=== PATIENT | female | born 1965 ===

== ENCOUNTER 2017-02-12 06:01 | Day surgery (SDC) | payer SELFPAY ==
[2017-02-04 12:08] VITALS: BMI 32.3
[2017-02-12] MEDS ORDERED: Lactated Ringer's 1,000 ML IV ONE (06:37)
[2017-02-12] MEDS ORDERED: Succinylcholine 200 mg/10 ml Inj IV ONE (07:16)
[2017-02-12] MEDS ORDERED: Propofol 10 mg/ml Inj (20 ML) ONE (07:16)
[2017-02-12] MEDS ORDERED: Midazolam 2 MG/2 ML VIAL ONE (07:16)
[2017-02-12] MEDS ORDERED: Rocuronium 10 mg/ml (5 ml) ONE (07:16)
[2017-02-12] MEDS ORDERED: Phenylephrine 10 mg/ml Inj ONE (07:17)
[2017-02-12] MEDS ORDERED: ePHEDrine 50 mg/ml Inj ONE (07:17)
--- NOTE | 2017-02-12 07:29 | CP.SDSHP ---
Same Day Surgery H & P - History Proposed Procedure: hysteroscopy and removal or IUD Pre-Op Diagnosis: missing IUD/pelvic pain/fibroid uterus - Previous Medical/Surgical History Previous Surgical History: none - Allergies Allergies: Allergies No Known Allergies Allergy (Unverified 12/10/14 07:50) - Current Medications Current Medications: none - Physical Exam General Appearance: NAD Vital Signs: Vital Signs 02/12/17 02/12/17 06:26 06:28 Temperature 98.7 F Pulse Rate 90 90 Respiratory 18 Rate Blood Pressure 139/83 O2 Sat by Pulse 97 Oximetry Mental Status: Alert & Oriented x3 Neuro: WNL Heart: WNL Lungs: WNL GI: WNL - {Optional Preform as Required} Breast: WNL Abdomen: WNL BULL BUCKER: WNL Other Pertinent Findings: missing IUD string - Impression Impression: missing IUD string Pelvic pain - Date & Time Date: 02/12/17 Time: 07:33 Short Stay Discharge - Short Stay Discharge Admitting Diagnosis/Reason for Visit: T83.32XA/R10.2 Disposition: HOME/ ROUTINE Referrals: Collin Tamez MD [Primary Care Provider] -
[2017-02-12] MEDS ORDERED: Dexamethasone 4 mg/1 ml ONE (08:17)
[2017-02-12] MEDS ORDERED: Oxycodone/Acetaminophen 5/325 mg Tab PO PRN (08:43)
[2017-02-12 09:18] VITALS: RESP 20
[2017-02-12 09:54] VITALS: O2SAT 98
--- NOTE | 2017-02-12 10:15 | CP.SDSHP ---
Same Day Surgery H & P - Allergies Allergies: Allergies No Known Allergies Allergy (Unverified 12/10/14 07:50) - Physical Exam Vital Signs: Vital Signs 02/12/17 02/12/17 02/12/17 06:26 06:28 08:38 Temperature 98.7 F 97.7 F Pulse Rate 90 90 90 Respiratory 18 18 Rate Blood Pressure 139/83 113/70 O2 Sat by Pulse 97 100 Oximetry 02/12/17 02/12/17 02/12/17 08:55 09:10 09:25 Temperature 97.3 F L Pulse Rate 82 73 74 Respiratory 18 20 20 Rate Blood Pressure 112/77 125/85 117/62 O2 Sat by Pulse 100 100 100 Oximetry 02/12/17 02/12/17 02/12/17 09:40 09:53 09:56 Temperature 97.3 F L 98.1 F Pulse Rate 76 78 Respiratory 20 20 Rate Blood Pressure 108/75 126/63 O2 Sat by Pulse 97 98 98 Oximetry Short Stay Discharge - Short Stay Discharge Admitting Diagnosis/Reason for Visit: T83.32XA/R10.2 Referrals: Collin Tamez MD [Primary Care Provider] - Follow-up: 2 wks in office Additional Instructions (Diet, Activity): pelvic and bed rest Progress Note/Discharge Note with Instructions: tolerated procedure well no complications Recovered well, procedure and findings discussed D/C home with rx for Percocet 5/325mg q 4 hrs prn for pain # 20.
[2017-02-12 10:47] VITALS: BP 130/85; PULSE 86; TEMP 98
--- NOTE | 2017-02-13 01:10 | OP ---
PROCEDURE DATE: 02/12/2017 PREOPERATIVE DIAGNOSES: 1. Pelvic pain. 2. Missing intrauterine contraceptive device. POSTOPERATIVE DIAGNOSES: 1. Pelvic pain. 2. Endometrial polyps. PROCEDURE PERFORMED: 1. Hysteroscopy with endometrial polypectomy using MyoSure. 2. Removal of foreign body, IUD. 3. Fractional dilatation and curettage. SURGEON: Dr. Collin Tamez. ANESTHESIA USED: General Dr Moon ESTIMATED BLOOD LOSS: 75 mL. DRAINS USED: None. REPLACEMENTS USED: None. FINDINGS: 1. Cervix appears closed, grossly no lesion to visualization, thick, mobile. No IUD string visualized. 2. Uterus appears openly mid-sized. Smooth per patient. Sounded to 8 cm. 3. Hysteroscopy performed and show large endometrial polyp and foreign body in the uterine cavity in the shape of a T-shape IUD. 4. Endometrial polypectomy performed using MyoSure procedure without any complications. 5. IUD removed in toto and sent to pathology. 6. Fractional dilatation and curettage performed without any complications. DESCRIPTION OF PROCEDURE: The patient was taken to the operating room and placed on the operating table in the supine position. Following induction of general anesthesia, the patient was then placed in the dorsal lithotomy position. Perineal and genital areas were draped and prepped in the usual sterile manner. A sterile catheter was then placed into the bladder and clear fluid was then evacuated from the bladder. The patient was then examined under anesthesia with the above findings. A heavy weighted speculum was then placed in the posterior wall of the vagina displacing the cervix. The anterior lip of the cervix was then grasped using a single tooth tenaculum and retracted superiorly. At this time, the endocervical canal was then curetted using a Alee-Paddy curette. Minimal amount of tissue obtained and sent to pathology for proper pathological evaluation. Endocervical canal was then dilated using Jaison's dilators in an increasing size manner. Following this, we then proceeded to introduce into the endocervical cavity a hysteroscope and hysteroscope was then advanced under direct visualization. Upon entering the endometrial cavity, a foreign body consistent of a T-shape IUD found to be present in the endometrial cavity. At this time, also a large endometrial polyp noted to be present. Using a MyoSure apparatus, the polypectomy was then performed under direct visualization. Specimen was removed and sent to Pathology for proper pathological evaluation. On the direct visualization, the foreign body was then removed in toto and sent to Pathology. Following this, hysteroscope revealed no further lesions in the cavity except for some sloughing endometrium. Hysteroscope was then removed and the endometrial cavity was then gently curetted using sharp curettage. Minimal amount of tissue was obtained and sent to Pathology. Single-tooth tenaculum was then removed. The patient tolerated the procedure well. There was no bleeding. The patient was then transferred to the recovery room in satisfactory condition. Sponge and instrument counts were correct x3. Collin Tamez MD MTDD
== END 2017-02-12 10:53 | disposition home or self-care (01) ==
LOC: H.OPSURG 06:01
PROVIDERS: ATTEND Specialist
DX: N84.0 Polyp of corpus uteri (principal); T83.32XA Displacement of intrauterine contraceptive device, initial encounter; R10.2 Pelvic and perineal pain; Y84.8 Other medical procedures as the cause of abnormal reaction of the patient, or of later complication, without mention of misadventure at the time of the procedure